=== PATIENT | female | born 1995 | race Caucasian/White ===

== ENCOUNTER 2016-04-29 14:28 | Emergency (ER) | payer OTHER ==
[2016-04-29 16:06] LABS: HEMOGLOBIN 12.9 gm/dl (12.3-15.3); RED BLOOD COUNT 4.24 M/UL (4.00-5.10); WHITE BLOOD COUNT 9.8 K/UL (4.5-11.0)
[2016-04-29 16:20] LABS: BUN/CREATININE RATIO 12 (0-10)
== END 2016-04-29 17:20 | disposition left against medical advice (07) ==
LOC: ER1 14:28
PROVIDERS: Emergency Medicine
DX: T40.1X1A Poisoning by heroin, accidental (unintentional), initial encounter (principal); R40.0 Somnolence; F17.200 Nicotine dependence, unspecified, uncomplicated
CPT/HCPCS: 36415; 80053; 80307; 85025; 93005; 99284; G0480; J7030

== ENCOUNTER 2020-06-20 07:27 | Inpatient (IN) | payer OTHER ==
[~2020-06-20] VITALS: Ht 170.2 cm; Wt 97.1 kg
[~2020-06-20 07:27] MED LIST: DOXYCYCLINE PO; IBUPROFEN600 MG PO; NORCO 10-325 T1 EACH PO
[2020-06-20 08:38] LABS: HEMOGLOBIN 12.8 gm/dl (12.3-15.3); RED BLOOD COUNT 4.26 M/UL (4.00-5.10); WHITE BLOOD COUNT 9.6 K/UL (4.5-11.0)
[2020-06-20] MEDS ORDERED: SUBOXONE 2 MG-1 EACH SL (10:01)
[2020-06-20] MEDS ORDERED: BUPRENORPHN-NA1 EACH SL (13:17)
[2020-06-20] MEDS ORDERED: IBUPROFEN800 MG PO (13:17)
[2020-06-20] MEDS ORDERED: DOCUSATE SODIU100 MG PO (13:17)
[2020-06-20] MEDS ORDERED: TYLENOL EXTRA500 MG PO (13:17)
[2020-06-21 06:45] LABS: HEMOGLOBIN 11.4 gm/dl (12.3-15.3)
[2020-06-22 18:12] LABS: AMPHETAMINE Positive (.); AMPHETAMINE GC/MS CONF 792 ng/mL (Cutoff=500); AMPHETAMINES Positive (Cutoff=1000); AMPHETAMINES, URINE See Final Results ng/mL (Cutoff=1000); BARBITURATE Negative ng/mL (Cutoff=200); BENZODIAZEPINES Negative ng/mL (Cutoff=200); CANNABINOIDS Negative ng/mL (Cutoff=20); COCAINE (METABOLITE) Negative ng/mL (Cutoff=300); CREATININE 97.8 mg/dL (20.0-300.0); MEPERIDINE Negative ng/mL (Cutoff=200); METHADONE Negative ng/mL (Cutoff=300); METHAMPHETAMINE Positive (.); METHAMPHETAMINE GC/MS CONF 2520 ng/mL (Cutoff=500); OPIATES Negative ng/mL (Cutoff=300); PHENCYCLIDINE Negative ng/mL (Cutoff=25); PROPOXYPHENE Negative ng/mL (Cutoff=300)
== END 2020-06-22 12:16 | disposition home or self-care (01) | DRG 806 ==
LOC: GENOP 07:27 → OB 08:12
PROVIDERS: Obstetrics & Gynecology; ADMIT Obstetrics & Gynecology
PROC: 10E0XZZ Delivery of Products of Conception, External Approach (ICD-10-PCS; principal; 2020-06-20)
PROC: 0KQM0ZZ Repair Perineum Muscle, Open Approach (ICD-10-PCS; 2020-06-20)
PROC: 10907ZC Drainage of Amniotic Fluid, Therapeutic from Products of Conception, Via Natural or Artificial Opening (ICD-10-PCS; 2020-06-20)
DX: O99.324 Drug use complicating childbirth (principal); O98.42 Viral hepatitis complicating childbirth; Z37.0 Single live birth; Z3A.38 38 weeks gestation of pregnancy; Z20.822 Contact with and (suspected) exposure to COVID-19; F15.10 Other stimulant abuse, uncomplicated; B19.20 Unspecified viral hepatitis C without hepatic coma; O99.334 Smoking (tobacco) complicating childbirth; F17.210 Nicotine dependence, cigarettes, uncomplicated; O70.1 Second degree perineal laceration during delivery; O66.0 Obstructed labor due to shoulder dystocia
CPT/HCPCS: 36415; 51702; 80307; 81001; 82800; 83518; 85014; 85018; 85025; 90715; 94760; J2590; U0002; U0003

== ENCOUNTER 2021-03-25 17:37 | Observation (INO) | payer OTHER ==
[~2021-03-25] VITALS: Ht 170.2 cm; Wt 81.6 kg
[~2021-03-25 17:37] MED LIST changes: +BUPRENORPHN-NA1 EACH SL; +DOCUSATE SODIU100 MG PO; +IBUPROFEN800 MG PO; +SUBOXONE 2 MG-1 EACH SL; +TYLENOL EXTRA500 MG PO
[2021-03-25 19:59] LABS: HEMOGLOBIN 13.6 gm/dl (12.3-15.3); RED BLOOD COUNT 4.58 M/UL (4.00-5.10); WHITE BLOOD COUNT 7.6 K/UL (4.5-11.0)
[2021-03-25 20:11] LABS: BUN/CREATININE RATIO 16 (0-10)
[2021-03-26] MEDS ORDERED: BUPRENORPHN-NA1 EACH SL (11:19)
[2021-03-26] MEDS ORDERED: IBUPROFEN800 MG PO (13:54)
== END 2021-03-26 15:00 | disposition home or self-care (01) ==
LOC: ER1 17:37 → CDU 22:46
PROVIDERS: Physician Assistant Medical; ADMIT Surgery
DX: S27.0XXA Traumatic pneumothorax, initial encounter (principal); S22.31XA Fracture of one rib, right side, initial encounter for closed fracture; S22.21XA Fracture of manubrium, initial encounter for closed fracture; S30.1XXA Contusion of abdominal wall, initial encounter; U07.1 COVID-19; F17.290 Nicotine dependence, other tobacco product, uncomplicated; V47.5XXA Car driver injured in collision with fixed or stationary object in traffic accident, initial encounter; Y93.C2 Activity, hand held interactive electronic device; Z79.891 Long term (current) use of opiate analgesic
CPT/HCPCS: 70450; 71045; 71260; 72125; 73110; 73562; 80053; 84703; 85025; 96374; 99284; G0378; J1885; Q9967; U0002